=== PATIENT | female | born 1980 | race Caucasian/White ===

== ENCOUNTER 2020-01-17 17:22 | Emergency (ER) | payer BC ==
[~2020-01-17] VITALS: Ht 162.6 cm; Wt 61.2 kg
== END 2020-01-17 21:30 | disposition home or self-care (01) ==
LOC: ER 17:22
DX: B34.9 Viral infection, unspecified (principal); Z03.818 Encounter for observation for suspected exposure to other biological agents ruled out; R07.89 Other chest pain; R50.9 Fever, unspecified